=== PATIENT | female | born 1990 | race Caucasian/White ===

== ENCOUNTER 2022-06-29 11:39 | Observation (INO) | payer MEDICAID ==
[~2022-06-29] VITALS: Ht 156 cm; Wt 85.3 kg
[2022-06-29] MEDS ORDERED: BETAMETH ACET/BETAMETH NA PH 30 MG/5 ML VIAL IM ONE (12:10)
[2022-06-29] MEDS ORDERED: LACTATED RINGERS 1,000 ML IV SCH (12:10)
[2022-06-29] MEDS ORDERED: LACTATED RINGERS 500 ML IV ONE (12:10)
[2022-06-29] MEDS ORDERED: NIFEdipine 10 MG CAPLF PO SCH (12:10)
[2022-06-29 12:33] VITALS: BP 132/78
[2022-06-29 14:56] LABS: BILIRUBIN,URINE NEGATIVE (NEGATIVE); BLOOD, URINE 1+ (NEGATIVE); COLOR,URINE YELLOW (YELLOW); LEUKOCYTE ESTERASE ,URINE 3+ (NEGATIVE); NITRITE, URINE NEGATIVE (NEGATIVE); PH,URINE 6.5 (5.0-9.0); UGLUCOSE NEGATIVE (NEGATIVE)
[2022-06-29 15:02] LABS: APPEARANCE,URINE CLOUDY (CLEAR)
[2022-06-29 15:37] LABS: RBC,URINE 0-5 /HPF (0-5); WBC,URINE 80-100 /HPF (0-5)
[2022-06-29] MEDS ORDERED: NIFEdipine 10 MG CAPLF ONE (18:36)
[2022-06-29] MEDS ORDERED: ACETAMINOPHEN 650 MG/20.3 ML UDC PO PRN (19:30)
[2022-06-29] MEDS ORDERED: cefTRIAXone 1,000 MG VIAL ONE (19:31)
[2022-06-29] MEDS ORDERED: ACETAMINOPHEN 325 MG TAB ONE (19:32)
[2022-06-30] MEDS ORDERED: NIFEdipine 10 MG CAPLF PO SCH (18:30)
== END 2022-06-29 21:25 | disposition home or self-care (01) ==
LOC: MLD 11:39
PROVIDERS: ADMIT Obstetrics & Gynecology; ATTEND Obstetrics & Gynecology
DX: O26.893 Other specified pregnancy related conditions, third trimester (principal); R10.9 Unspecified abdominal pain; Z3A.36 36 weeks gestation of pregnancy
CPT/HCPCS: 59025; 81001; 87086; 96360; 96372; G0378; J0696; J0702; J7060

== ENCOUNTER 2022-06-30 12:35 | Observation (INO) | payer MEDICAID ==
[~2022-06-30] VITALS: Ht 156 cm; Wt 80.7 kg
[2022-06-30] MEDS ORDERED: BETAMETH ACET/BETAMETH NA PH 30 MG/5 ML VIAL IM SCH (12:50)
== END 2022-06-30 14:30 | disposition home or self-care (01) ==
LOC: MLD 12:35
PROVIDERS: ADMIT Obstetrics & Gynecology; ATTEND Obstetrics & Gynecology
DX: O26.893 Other specified pregnancy related conditions, third trimester (principal); R10.9 Unspecified abdominal pain; R51.9 Headache, unspecified; Z3A.36 36 weeks gestation of pregnancy
CPT/HCPCS: 81000; G0378; G0379; J0702

== ENCOUNTER 2022-07-06 12:25 | Inpatient (IN) | payer MEDICAID ==
[~2022-07-06] VITALS: Ht 156 cm; Wt 86.2 kg
[2022-07-06] MEDS: LACTATED RINGERS 1,000 ML IV SCH ×2 (12:45→21:08)
[2022-07-06] MEDS ORDERED: METHYLERGONOVINE 0.2 MG/ML AMP IM PRN (12:55)
[2022-07-06] MEDS ORDERED: ONDANSETRON 4 MG/2 ML VIAL IVP PRN (12:55)
[2022-07-06] MEDS ORDERED: OXYTOCIN 20 UNITS in LACTATED RINGERS 1,000 ML IV SCH (13:00)
[2022-07-06] MEDS ORDERED: MORPHINE SULFATE 10 MG/ML VIAL IVP PRN (13:05)
[2022-07-06 14:13] VITALS: BP 115/63
[2022-07-06 14:40] LABS: APPEARANCE,URINE CLOUDY (CLEAR); BILIRUBIN,URINE 1+ (NEGATIVE); BLOOD, URINE 3+ (NEGATIVE); COLOR,URINE RED (YELLOW); LEUKOCYTE ESTERASE ,URINE 1+ (NEGATIVE); NITRITE, URINE NEGATIVE (NEGATIVE); PH,URINE 6.5 (5.0-9.0); UGLUCOSE TRACE (NEGATIVE)
[2022-07-06 14:57] LABS: OTHER CASTS, URINE None Seen /LPF (None Seen); RBC,URINE 20-50 /HPF (0-5)
[2022-07-06 15:29] LABS: BASOPHILS % (AUTO) 0.4 % (0.0-2.0); HEMOGLOBIN 11.2 g/dL (12.0-16.0); LYMPHOCYTES # (AUTO) 2.2 K/uL (2.5-16.5); LYMPHOCYTES % (AUTO) 21.2 % (20.5-51.1); MEAN CORPUSCULAR HEMOGLOBIN 28 pg (27-31); MEAN CORPUSCULAR HGB CONC 34 g/dL (33-37); MEAN CORPUSCULAR VOLUME 81.9 fL (80-94); MONOCYTES # (AUTO) 0.9 K/uL (0.8-1.0); MONOCYTES % (AUTO) 8.5 % (1.7-9.3); NEUTROPHILS # (AUTO) 7.3 K/uL (1.8-7.7); NEUTROPHILS % (AUTO) 69.9 % (42.2-75.2); PLATELET COUNT (AUTO) 308 K/uL (140-450); RED BLOOD CELL COUNT(AUTO) 4.02 MIL/uL (4.20-5.40); RED CELL DISTRIBUTION WIDTH 14.7 % (11.6-13.7); WHITE BLOOD COUNT (AUTO) 10.4 K/uL (4.8-10.8)
[2022-07-06 15:47] LABS: PROTHROMBIN TIME 9.4 secs (10.8-13.4)
[2022-07-06 15:49] LABS: ALBUMIN 2.6 g/dL (3.4-5.0); CARBON DIOXIDE 20.9 mmol/L (21-32); CREATININE 0.6 mg/dL (0.6-1.3); POTASSIUM 3.9 mmol/L (3.5-5.1); TOTAL BILIRUBIN 0.3 mg/dL (0.0-1.0)
[2022-07-07] MEDS ORDERED: OXYTOCIN 20 UNITS/LR PREMIX 1,000 ML IV ONE (02:23)
[2022-07-07] MEDS: LACTATED RINGERS 1,000 ML IV SCH ×3 (05:52→20:56)
[2022-07-07] MEDS ORDERED: PROPOFOL 200 MG/20 ML VIAL IV ONE (06:30)
[2022-07-07] MEDS ORDERED: ceFAZolin 2,000 MG VIAL ONE (06:30)
[2022-07-07] MEDS ORDERED: METOCLOPRAMIDE 10 MG/2 ML INJ VIAL ONE (06:30)
[2022-07-07] MEDS ORDERED: SUGAMMADEX SODIUM 200 MG/2 ML VIAL IV ONE (06:30)
[2022-07-07] MEDS ORDERED: ONDANSETRON 4 MG/2 ML VIAL ONE (06:30)
[2022-07-07] MEDS ORDERED: ERYTHROMYCIN 0.5% OPTH OINT 1 GM TUBE ONE (07:54)
[2022-07-07] MEDS ORDERED: ACETAMINOPHEN 325 MG TAB ONE (13:31)
--- NOTE | 2022-07-07 13:37 | NUR ---
PATIENT HAS BEEN SCREENED AND CATEGORIZED LOW NUTRITION RISK. PATIENT WILL BE SEEN WITHIN 7 DAYS OF ADMISSION. 07/13/22 REVIEWED BY ALEXANDRE DAVIS RD
[2022-07-07 20:51] VITALS: BP 136/77
[2022-07-07] MEDS ORDERED: LIDOCAINE 1% 500 MG/50 ML VIAL ONE (22:43)
[2022-07-08] MEDS ORDERED: MEASLES, MUMPS, AND RUBELLA 1 VIAL SQVAC ONE (00:30)
[2022-07-08] MEDS ORDERED: BENZOCAINE/MENTHOL 20%-0.5% 60 GM CAN TP PRN (00:30)
[2022-07-08] MEDS ORDERED: SODIUM PHOSPHATE 118 ML ENEM RC PRN (00:30)
[2022-07-08] MEDS ORDERED: TEMAZEPAM 15 MG CAP PO PRN (00:30)
[2022-07-08] MEDS ORDERED: HYDROcodone/APAP 5/325 MG 1 TAB TAB PO PRN (00:30)
[2022-07-08] MEDS ORDERED: METHYLERGONOVINE 0.2 MG/ML AMP IM PRN (00:30)
[2022-07-08] MEDS ORDERED: oxyCODONE/APAP 5/325 MG 1 TAB TAB PO PRN (00:30)
[2022-07-08] MEDS ORDERED: ceFAZolin 2,000 MG VIAL ONE (03:15)
[2022-07-08] MEDS: LACTATED RINGERS 1,000 ML IV SCH (04:05)
[2022-07-08] MEDS ORDERED: BUPIVACAINE-MPF/EPI 0.25% 10 ML VIAL INJ ONE (06:07)
[2022-07-08 06:13] LABS: HEMATOCRIT 25.8 % (36-48); HEMOGLOBIN 8.5 g/dL (12.0-16.0)
[2022-07-08] MEDS ORDERED: HYDROmorphone PFS 2 MG/ML SYR ONE (06:44)
[2022-07-08] MEDS ORDERED: PROPOFOL 200 MG/20 ML VIAL IV ONE (06:51)
[2022-07-08] MEDS ORDERED: SUCCINYLCHOLINE CHLORIDE 200 MG/10 ML VIAL IVP ONE (06:51)
[2022-07-08] MEDS ORDERED: ONDANSETRON 4 MG/2 ML VIAL ONE (06:51)
[2022-07-08] MEDS ORDERED: ROCURONIUM 50 MG/5 ML VIAL IV ONE (06:52)
[2022-07-08] MEDS ORDERED: KETOROLAC 30 MG/ML VIAL ONE (06:52)
[2022-07-08] MEDS ORDERED: SUGAMMADEX SODIUM 200 MG/2 ML VIAL IV ONE (06:52)
[2022-07-08] MEDS ORDERED: DEXAMETHASONE 4 MG/ML VIAL ONE (06:52)
[2022-07-08] MEDS ORDERED: METOCLOPRAMIDE 10 MG/2 ML INJ VIAL ONE (06:52)
[2022-07-08] MEDS ORDERED: ONDANSETRON 4 MG/2 ML VIAL IVP PRN (07:30)
[2022-07-08] MEDS ORDERED: HYDROmorphone 1 MG/ML AMP IVP PRN (07:30)
[2022-07-08] MEDS ORDERED: DOCUSATE SOD/SENNA 50/8.6 MG 1 TAB PO SCH (21:00)
[2022-07-09] MEDS: IBUPROFEN 600 MG TAB PO SCH ×2 (09:17→13:14)
== END 2022-07-09 16:15 | disposition home or self-care (01) | DRG 541 ==
LOC: MLD 12:25 → MFCC 07-08 00:34
PROVIDERS: ADMIT Obstetrics & Gynecology; ATTEND Obstetrics & Gynecology
PROC: 10E0XZZ Delivery of Products of Conception, External Approach (ICD-10-PCS; principal; 2022-07-07)
PROC: 0KQM0ZZ Repair Perineum Muscle, Open Approach (ICD-10-PCS; 2022-07-07)
PROC: 0UB70ZZ Excision of Bilateral Fallopian Tubes, Open Approach (ICD-10-PCS; 2022-07-09)
DX: O70.1 Second degree perineal laceration during delivery (principal); Z37.0 Single live birth; Z20.822 Contact with and (suspected) exposure to COVID-19; Z3A.37 37 weeks gestation of pregnancy; Z30.2 Encounter for sterilization
CPT/HCPCS: 36415; 59409; 76815; 80053; 81001; 85018; 85025; 85610; 85730; 86592; 86886; 86900; 86901; 87086; J0330; J1100; J1170; J1885; J2001; J2210; J2270; J2405; J2590; J2704; J2765; J3490; J7120; Q0092